=== PATIENT | female | born 1955 | race African-American/Black ===

== ENCOUNTER 2020-07-26 06:47 | Day surgery (SDC) | payer MEDICARE ==
[~2020-07-26 06:47] MED LIST: METFORMIN500 M2 PO; MULTI VIT PO; NEURONTIN100 MG PO; OSCAL 500/1 TAB PO
[2020-07-26 08:41] VITALS: BP 146/65
== END 2020-07-26 09:02 | disposition home or self-care (01) ==
LOC: ENDO 06:47
PROVIDERS: ATTEND Surgery
PROC: 0DJD8ZZ Inspection of Lower Intestinal Tract, Via Natural or Artificial Opening Endoscopic (ICD-10-PCS; principal; 2020-07-26)
DX: Z12.11 Encounter for screening for malignant neoplasm of colon (principal); Z20.828 Contact with and (suspected) exposure to other viral communicable diseases